=== PATIENT | female | born 1960 | race Caucasian/White ===

== ENCOUNTER → 2016-12-29 | Outpatient (CLI) | payer OTHER, MEDICARE ==
[~2016-12-29] MED LIST: ACET160S5 PO; ATIV2INJ2 IV; ATOR1TAB18 PO; CALC500C16 PO; CARV6.25 PO; GLIM4TAB PO; INSULADS SC; IRON65TA PO; LEVE250T5 PO; LINE60TAB PO; MELA0.02 PO; MULT1TAB10 PO; NEXI40CA PO; NYST10PW TOP; ONDA4TAB6 PO; OXYC1SOL PO; POTA20TA4 PO; QUIN5TAB7 PO; SING10TA32 PO; SPIR25TA2 PO; VITA100L PO; XANA0.5T PO; ZYRT10CA PO; [UNRECOGNIZED DRUG - CODE] IV
--- NOTE | 2016-12-29 11:48 | REP ---
MRI BRAIN WITHOUT AND WITH CONTRAST: 12/29/2016. CLINICAL HISTORY: Status post brain abscess drainage, no cardia infection. TECHNIQUE: Sagittal T1 with axial T1, T2, FLAIR, gradient echo, diffusion-weighted images and ADC mapping sequences provided. After infusion of 30 mL of ProHance, axial, sagittal and coronal T1 sequences performed. COMPARISON: 08/04/2016, 03/17/2016. FINDINGS: The left frontal craniotomy changes are again seen. Some heterogeneous and mixed signal intensity noted again in the posterior aspect of the left frontal lobe with hyperintense T2 FLAIR signal in the white matter adjacent to this area of encephalomalacia. I do not see enhancement around this region. No evidence of intracranial hemorrhage, particularly parenchymal hemorrhage or extra-axial fluid collection. No midline shift. The lateral ventricles slightly asymmetrically larger of the frontal horn on the left than right due to the gliosis and mild encephalomalacia of the posterior left frontal lobe. Third and fourth ventricles unremarkable. No intraventricular hemorrhage or mass. 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 Certainly not enlarged. Seventh/eighth cranial nerve complexes and mastoids unremarkable. There is mucosal thickening in the floor and medial/anterior bolanos of the left maxillary sinus. The right maxillary sinus is clear. Orbits and contents symmetric. Visualized sinuses show some minor mucosal thickening right ethmoid air cells. No air-fluid levels. Sagittal images show the corpus callosum, optic chiasm, pituitary intact. Globes, optic nerves and intraorbital contents along the extraocular muscles intact. Brainstem and cerebellum grossly intact. The basal cisterns intact. Posterior fossa hemorrhage showed there is no acute hemorrhage on the gradient echo images. IMPRESSION: 1. Prior left frontal craniotomy with some encephalomalacia and no evidence of enhancement, abnormal fluid collection or abscess. 2. Pineal cyst about 9 mm now, previously 10 in the July study. 3. No other significant or acute finding in the brain. No abnormal enhancement. Signed by Zacarias Palm MD 12/29/2016 01:33 P
== END ==
LOC: M PLARAD 08:28
PROVIDERS: ATTEND Neurological Surgery
DX: G06.0 Intracranial abscess and granuloma (principal)

== ENCOUNTER → 2017-03-25 | Outpatient (CLI) | payer OTHER, MEDICARE ==
[~2017-03-25] MED LIST changes: -ATOR1TAB18 PO; +ATOR80TA59 PO; -MELA0.02 PO; +MELA3TAB49 PO; -OXYC1SOL PO; +OXYC1SOL3 PO
--- NOTE | 2017-03-25 14:57 | REPMRS ---
Patient History The patient states she had a clinical breast exam in 03/2017. Patient is postmenopausal and has history of other cancer at age 54. Family history of pancreatic cancer in mother at age 86 and breast cancer in maternal aunt. Digital Woman Screen Mammo: March 25, 2017 - Exam #: [id number] Bilateral CC and MLO view(s) were taken. Technologist: Mariposa Perez, Technologist Prior study comparison: August 16, 2015, digital woman screen mammo performed at [facility]. July 17, 2014, digital woman screen mammo performed at [facility]. FINDINGS: There are scattered fibroglandular densities. There is a fairly symmetric fibroglandular pattern in both breasts. There has been no interval development of masses, areas of architectural distortion or clusters of microcalcifications typical of malignancy. ASSESSMENT: BI-RADS/ACR category 2 mammogram. Benign finding(s). Recommendation Routine screening mammogram of both breasts in 1 year (for women over age 40). This mammogram was interpreted with the aid of an FDA-approved computer-aided dectection system. Electronically Signed By: Óscar Hoskins MD 03/25/17 [id number]
== END ==
LOC: M WHC 13:15
PROVIDERS: ATTEND Nurse Practitioner Adult Health
DX: Z12.31 Encounter for screening mammogram for malignant neoplasm of breast (principal)

== ENCOUNTER → 2017-03-25 | Outpatient (REF) | payer OTHER, MEDICARE | LOC: M SFHCWAGY 13:47 | PROVIDERS: ATTEND Nurse Practitioner Family | DX: Z12.12 Encounter for screening for malignant neoplasm of rectum (principal) ==

== ENCOUNTER → 2017-04-08 | Outpatient (REF) | payer OTHER, MEDICARE | LOC: M LAB REF 16:46 | PROVIDERS: ATTEND Nurse Practitioner Adult Health | DX: Z86.14 Personal history of Methicillin resistant Staphylococcus aureus infection (principal) ==

== ENCOUNTER → 2017-04-30 | Outpatient (REF) | payer OTHER, MEDICARE | LOC: M LAB REF 12:43 | PROVIDERS: ATTEND Physician Assistant | DX: H60.01 Abscess of right external ear (principal) ==

== ENCOUNTER → 2018-03-17 | Outpatient (CLI) | payer OTHER, MEDICARE | LOC: M RAD 08:22 | DX: M70.61 Trochanteric bursitis, right hip (principal); M16.12 Unilateral primary osteoarthritis, left hip; M94.251 Chondromalacia, right hip | CPT/HCPCS: 73721 ==

== ENCOUNTER → 2018-12-20 | Outpatient (CLI) | payer OTHER, MEDICARE ==
[~2018-12-20] MED LIST changes: -ACET160S5 PO; -ATIV2INJ2 IV; +ATIV2INJ5 IV; +LINE1TAB PO; -LINE60TAB PO; +NYST-15 TOP; -NYST10PW TOP; +PROHANCE 279.3MG/ML 15ML VIAL (A9576) As Ordered ONE; +PROHANCE 279.3MG/ML 5ML VIAL (A9576) As Ordered ONE; +QUIN1TAB PO; -QUIN5TAB7 PO; +SPIR-10 PO; -SPIR25TA2 PO; +TGTSUS3 PO
--- NOTE | 2018-12-20 17:56 | REP ---
MRI brain without and with IV gadolinium: History: Pineal gland cyst. Comparison MRI study is from June 16, 2017. There is also a history of prior left frontal craniotomy. The prior study showed a 8 mm pineal cyst. Gadolinium enhancement dose: 20 ml of intravenous ProHance. Technique: Axial and sagittal imaging planes are utilized for T1 and T2-weighted scans. Sequences include spin-echo, fast spin echo, FLAIR, and diffusion weighted sequences. MRI findings: An area of encephalomalacia is again noted in the left posterior frontal lobe underlying the craniotomy site. These findings are unchanged. The previously noted cystic lesion in the pineal gland is decreased in size today measuring 6 mm in greatest diameter by only 3 mm in transverse dimension. It is significantly smaller than March 2016 and has decreased since the most recent prior study. No other intracranial lesion is seen. Diffusion weighted scans show no evidence of restricted diffusion to suggest acute ischemia. Postcontrast images show no abnormal intracranial gadolinium enhancement. Impression: Stable area of encephalomalacia in the left frontal lobe underlying previous craniotomy. There has been a decrease in the size of the cystic lesion in the pineal gland in the interval since the most recent prior study. 3 x 6 mm today. Electronically Signed by Mj Le MD 12/21/2018 10:29 A
== END ==
LOC: M RAD 15:04
PROVIDERS: ATTEND Neurological Surgery
DX: E34.8 Other specified endocrine disorders (principal)
CPT/HCPCS: 70553; A9576

== ENCOUNTER → 2019-01-07 | Outpatient (REF) | payer OTHER, MEDICARE ==
[~2019-01-07] MED LIST changes: -PROHANCE 279.3MG/ML 15ML VIAL (A9576) As Ordered ONE; -PROHANCE 279.3MG/ML 5ML VIAL (A9576) As Ordered ONE
== END ==
LOC: M LAB REF 15:17
PROVIDERS: ATTEND Internal Medicine
DX: L03.112 Cellulitis of left axilla (principal)

== ENCOUNTER → 2019-07-04 | Outpatient (CLI) | payer OTHER, MEDICARE ==
[~2019-07-04] MED LIST changes: -GLIM4TAB PO; +GLIM4TAB3 PO
--- NOTE | 2019-07-04 14:18 | REPMRS ---
Patient History The patient states she had a clinical breast exam in 06/2019. Patient is postmenopausal and has history of other cancer at age 54. Family history of breast cancer in maternal aunt, pancreatic cancer at age 86 in mother. No Hormone Replacement Therapy 3D TOMOSYNTHESIS WAS PERFORMED. [facility] lifetime risk for breast cancer is 9.4%. Digital Woman Screen Mammo: July 04, 2019 - Exam #: [id number] Bilateral CC and MLO view(s) were taken. Technologist: Mariposa Perez, Technologist Prior study comparison: March 25, 2017, digital woman screen mammo performed at [facility]. August 16, 2015, digital woman screen mammo performed at [facility]. FINDINGS: There are scattered fibroglandular densities. There has been no change in the appearance of the mammogram from the prior studies. There is a mild amount of residual fibroglandular tissue which is fairly symmetric. There is no interval development of dominant mass, architectural distortion, or clustered microcalcification suggestive of malignancy. Assessment: BI-RADS/ACR category 1 mammogram. Negative Mammogram. Recommendation Routine screening mammogram in 1 year (for women over age 40). This mammogram was interpreted with the aid of an FDA-approved computer-aided dectection system. Electronically Signed By: Óscar Hoskins MD 07/04/19 [id number]
== END ==
LOC: M WHC 11:50
PROVIDERS: ATTEND Nurse Practitioner Family
DX: Z12.31 Encounter for screening mammogram for malignant neoplasm of breast (principal); Z78.0 Asymptomatic menopausal state; Z80.3 Family history of malignant neoplasm of breast

== ENCOUNTER → 2019-07-04 | Outpatient (REF) | payer OTHER, MEDICARE ==
[2019-07-06 14:07] LABS: HPV HYBRID CAPTURE II Negative (Negative)
== END ==
LOC: M SFHCWAGY 12:12
PROVIDERS: ATTEND Nurse Practitioner Family
DX: Z12.4 Encounter for screening for malignant neoplasm of cervix (principal)
CPT/HCPCS: 87624; G0123

== ENCOUNTER → 2020-04-09 | Outpatient (REF) | payer OTHER, MEDICARE ==
[~2020-04-09] MED LIST changes: -GLIM4TAB3 PO; +GLIM4TAB5 PO; +IMIP1INJ IV; -[UNRECOGNIZED DRUG - CODE] IV
[2020-04-09 13:16] LABS: FERRITIN 10 NG/ML (8-252); IRON (FE) 50 UG/DL (50-170); PERCENT SATURATION 11.1 % (13.2-45.0); TOTAL IRON BINDING CAPACITY 449 UG/DL (250-450)
[2020-04-09 13:27] LABS: FOLATE 13.5 NG/ML; VITAMIN B12 LEVEL > 2000 PG/ML
[2020-04-13 19:07] LABS: VITAMIN A, RETINOL LEVEL 27.7 ug/dL (20.1-62.0); VITAMIN B1 LEVEL WHOLE BLOOD 120.2 nmol/L (66.5-200.0)
== END ==
LOC: M LAB REF 08:34
PROVIDERS: ATTEND Registered Nurse
DX: Z13.21 Encounter for screening for nutritional disorder (principal); Z98.84 Bariatric surgery status

== ENCOUNTER → 2020-12-28 | Outpatient (CLI) | payer OTHER, MEDICARE ==
[~2020-12-28] MED LIST changes: +ACET-1439 PO; -TGTSUS3 PO
[2020-12-28 12:12] LABS: BLOOD UREA NITROGEN 13 MG/DL (7-18); GLOMERULAR FILTRATION RATE > 60.0 (>51)
== END ==
LOC: M WUC 09:38
PROVIDERS: ATTEND Neurological Surgery
DX: E34.8 Other specified endocrine disorders (principal)

== ENCOUNTER → 2020-12-31 | Outpatient (CLI) | payer MEDICARE, OTHER ==
[~2020-12-31] MED LIST changes: +PROHANCE 279.3MG/ML 15ML VIAL As Ordered ONE; +PROHANCE 279.3MG/ML 5ML VIAL As Ordered ONE
--- NOTE | 2020-12-31 14:54 | REP ---
INDICATION: PINEAL GLAND CYST, BRAIN ABSCESS. COMPARISON: Comparison is made with the prior MRI studies the most recent of which is from December 20, 2018. Comparison studies are also reviewed from June 16, 2017, August 08, 2015, and October 08, 2015.. TECHNIQUE: Axial and sagittal imaging planes are utilized for T1 and T2-weighted scans. Sequences include spin-echo, fast spin echo, FLAIR, and diffusion weighted sequences. Gadolinium enhancement dose is 20 mL of intravenous ProHance. Post gadolinium enhanced T1 fat sat imaging is acquired in all 3 planes. FINDINGS: Postsurgical changes are again noted status post left frontal craniotomy. There is a small zone of stable underlying encephalomalacia in the left frontal lobe unchanged from the most recent prior studies. FLAIR images demonstrate mild subcortical and periventricular T2 hyperintensity at the previous operative site in the left frontal lobe with subtle enlargement of the body of the left lateral ventricle unchanged. No extra-axial fluid collection or new mass lesion is seen. Postcontrast images show enhancement in normal vasculature. No abnormal intracranial contrast enhancement is seen. Previous study from August 08, 2015 showed a pineal cyst lesion measuring 13 x 18 mm. This is barely visible now. Most recently 6 by 3 mm. On today's study these dimensions are 2 x 5 mm. There is no MR evidence of significant paranasal sinus disease. No intraorbital abnormality is seen. Study is otherwise unremarkable. No evidence of intracranial hemorrhage. IMPRESSION: Status post left frontal craniotomy with underlying area of encephalomalacia stable since prior study. Barely perceptible pineal cystic area decreased from the 2014 prior study. Otherwise negative. <Electronically signed by Jorge Luis Le > 12/31/20 [id number]
== END ==
LOC: M RAD 11:22
PROVIDERS: ATTEND Neurological Surgery
DX: E34.8 Other specified endocrine disorders (principal); G06.0 Intracranial abscess and granuloma; G93.89 Other specified disorders of brain
CPT/HCPCS: 70553; A9576

== ENCOUNTER → 2021-06-06 | Outpatient (CLI) | payer OTHER, MEDICARE ==
[~2021-06-06] MED LIST changes: -PROHANCE 279.3MG/ML 15ML VIAL As Ordered ONE; -PROHANCE 279.3MG/ML 5ML VIAL As Ordered ONE
--- NOTE | 2021-06-06 14:27 | REPMRS ---
Patient History The patient states she had a clinical breast exam in May 2021. Family history of breast cancer in maternal aunt, pancreatic cancer at age 86 in mother. No Hormone Replacement Therapy Tomosynthesis is performed. [place] breast density is b. [facility] lifetime risk of breast cancer 8.9%. Patient states no breast complaints today. Patient has signed MRS History Sheet. Digital Woman Screen Mammo: June 06, 2021 - Exam #: [id number] Bilateral CC and MLO view(s) were taken. Technologist: Elizabet Schuster Technologist Prior study comparison: July 04, 2019, bilateral digital woman screen mammo performed at [facility]. March 25, 2017, digital woman screen mammo performed at [facility]. FINDINGS: There are scattered fibroglandular densities. There has been no change in the appearance of the mammogram from the prior studies. There is a mild amount of residual fibroglandular tissue which is fairly symmetric. There is no interval development of dominant mass, architectural distortion, or clustered microcalcification suggestive of malignancy. Assessment: BI-RADS/ACR category 1 mammogram. Negative Mammogram. Recommendation Routine screening mammogram in 1 year (for women over age 40). This mammogram was interpreted with the aid of an FDA-approved computer-aided dectection system. Electronically Signed By: Óscar Hoskins MD 06/06/21 [id number]
== END ==
LOC: M WHC 10:34
PROVIDERS: ATTEND Nurse Practitioner Women's Health
DX: Z12.31 Encounter for screening mammogram for malignant neoplasm of breast (principal); Z80.3 Family history of malignant neoplasm of breast

== ENCOUNTER → 2021-06-06 | Outpatient (REF) | payer OTHER, MEDICARE | LOC: M SFHCWAGY 13:18 | PROVIDERS: ATTEND Nurse Practitioner Women's Health | DX: Z12.4 Encounter for screening for malignant neoplasm of cervix (principal) | CPT/HCPCS: 87624; G0123 ==

== ENCOUNTER 2023-09-03 16:53 | Emergency (ER) | payer OTHER, MEDICARE ==
[~2023-09-03] VITALS: Ht 177.8 cm; Wt 122.7 kg
[~2023-09-03 16:53] MED LIST changes: -AMOX875T2 PO
[2023-09-03 19:38] VITALS: TEMP 99
[2023-09-03 19:44] LABS: BASO % 0.2 % (0.0-1.0); EOS % 0.2 % (0.0-3.0); HEMOGLOBIN 14.3 g/dl (12.0-15.5); LYMPH # 1.3 10^3/uL (1.5-5.0); LYMPH % 14.3 % (24.0-44.0); MEAN CORPUSCULAR HEMOGLOBIN 30.3 pg (27.0-33.0); MEAN CORPUSCULAR HGB CONC 32.5 g/dl (32.0-36.5); MEAN CORPUSCULAR VOLUME 93.2 fl (80.0-96.0); MONO # 0.8 10^3/uL (0.0-0.8); MONO % 9.4 % (2.0-8.0); NEUTROPHILS # 6.7 10^3/uL (1.5-8.5); NEUTROPHILS % 75.8 % (36.0-66.0); PLATELET COUNT, AUTOMATED 242 10^3/uL (150-450); RED BLOOD COUNT 4.72 10^6/uL (4.00-5.40); WHITE BLOOD COUNT 8.8 10^3/uL (4.0-10.0)
[2023-09-03 20:07] LABS: ERYTHROCYTE SEDIMENTATION RATE 92 mm/hr (0-30)
[2023-09-03] MEDS ORDERED: ISOVUE-370 76% 100ML VIAL As Ordered ONE (20:36)
[2023-09-03] MEDS ORDERED: cefTRIAXone SOD 1 GM in D5W MINI-BAG PLUS 50 ML IV ONE (21:30)
[2023-09-03] MEDS ORDERED: dexAMETHasone 20MG/5ML VIAL IV ONE (21:30)
[2023-09-03 23:01] VITALS: BP 133/77; O2SAT 97
[2023-09-03] MEDS ORDERED: AMOX875T2 PO (23:02)
== END 2023-09-03 23:16 | disposition home or self-care (01) ==
LOC: M ED 16:53
DX: L03.211 Cellulitis of face (principal); E11.9 Type 2 diabetes mellitus without complications; I10 Essential (primary) hypertension; J45.909 Unspecified asthma, uncomplicated; F32.A Depression, unspecified; E78.5 Hyperlipidemia, unspecified; Z87.891 Personal history of nicotine dependence; Z88.2 Allergy status to sulfonamides; Z88.8 Allergy status to other drugs, medicaments and biological substances; Z79.2 Long term (current) use of antibiotics; Z79.02 Long term (current) use of antithrombotics/antiplatelets; Z79.899 Other long term (current) drug therapy
CPT/HCPCS: 36415; 70487; 80047; 83605; 85025; 85652; 86140; 87040; 96365; 96375; 99284; J0696; J1100; Q9967

== ENCOUNTER → 2023-09-03 | Outpatient (REF) | payer OTHER, MEDICARE ==
[~2023-09-03] MED LIST changes: +AMOX875T2 PO; +MONT-5 PO; -SING10TA32 PO
== END ==
LOC: M SFHCDERM 17:34
PROVIDERS: ATTEND Physician Assistant
DX: L03.211 Cellulitis of face (principal)

== ENCOUNTER → 2023-09-21 | Outpatient (REF) | payer OTHER, MEDICARE ==
[~2023-09-21] MED LIST changes: +AMOX875T2 PO
[2023-09-21 18:57] LABS: FERRITIN 10.6 NG/ML (7.3-270.7); IRON (FE) 39 UG/DL (50-170)
[2023-09-21 18:58] LABS: PERCENT SATURATION 9.4 % (13.2-45.0); TOTAL IRON BINDING CAPACITY 414 UG/DL (250-425)
[2023-09-21 19:00] LABS: VITAMIN B12 LEVEL > 2000 PG/ML (211-911)
== END ==
LOC: M LAB REF 15:56
PROVIDERS: ATTEND Nurse Practitioner Adult Health
DX: L73.9 Follicular disorder, unspecified (principal)

== ENCOUNTER → 2023-10-27 | Outpatient (REF) | payer OTHER, MEDICARE | LOC: M LAB REF 13:05 | PROVIDERS: ATTEND Nurse Practitioner Adult Health | DX: L20.9 Atopic dermatitis, unspecified (principal) ==

== ENCOUNTER → 2023-11-06 | Outpatient (CLI) | payer OTHER, MEDICARE | LOC: M WHC 12:57 | PROVIDERS: ATTEND Nurse Practitioner Adult Health | DX: Z12.31 Encounter for screening mammogram for malignant neoplasm of breast (principal) ==

== ENCOUNTER → 2023-12-08 | Outpatient (REF) | payer OTHER, MEDICARE | LOC: M SFHCDERM 12:08 | PROVIDERS: ATTEND Physician Assistant | DX: L28.1 Prurigo nodularis (principal) ==

== ENCOUNTER → 2024-02-17 | Outpatient (REF) | payer OTHER, MEDICARE ==
[~2024-02-17] MED LIST changes: +ONDA-282 PO; -ONDA4TAB6 PO
== END ==
LOC: M SFHCDERM 15:32
PROVIDERS: ATTEND Physician Assistant
DX: L02.91 Cutaneous abscess, unspecified (principal)

== ENCOUNTER → 2024-02-25 | Outpatient (REF) | payer OTHER, MEDICARE | LOC: M SFHCDERM 13:12 | PROVIDERS: ATTEND Physician Assistant | DX: L02.91 Cutaneous abscess, unspecified (principal) ==

== ENCOUNTER → 2024-12-29 | Outpatient (CLI) | payer MEDICARE, OTHER | LOC: M WHC 12:41 | PROVIDERS: ATTEND Nurse Practitioner Adult Health | DX: Z12.31 Encounter for screening mammogram for malignant neoplasm of breast (principal) ==